=== PATIENT | male | born 2000 | race Caucasian/White ===

== ENCOUNTER 2024-03-05 09:14 | Outpatient (CLI) | payer MEDICAID, SELFPAY ==
--- NOTE | ~2024-03-05 | US_ITS ---
Limited Abdominal Sonogram: Real-time sonographic imaging of the right upper quadrant was performed. Clinical History: Abnormal liver enzymes Findings: The liver appears normal with no evidence of mass lesion or bile duct dilatation. Main por cliff vein demonstrates normal direction of flow. The gallbladder is well distended, and appears normal with no evidence of gallstone or wall thickening. The common bile duct measures 3 mm. The visualize d pancreas, aorta, and IVC are unremarkable. Impression: No significant abnormality seen. Reviewed, dictated and finalized at location . 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
== END 2024-03-05 09:15 | disposition home or self-care (01) ==
PROVIDERS: PCP Internal Medicine; Visit Provider Internal Medicine
DX: R94.5 Abnormal results of liver function studies (principal)
CPT/HCPCS: 76705

== ENCOUNTER 2024-04-06 00:48 | Day surgery (SDC) | payer MEDICAID, SELFPAY ==
[2024-03-26 12:55] VITALS: BMI 25.9
--- NOTE | 2024-04-05 15:33 | WPDANESEPPF ---
Anes - Initial Pre Proc Eval Procedure: Operation Date: 04/06/24 14:30 Proposed Procedures p Colonoscopy - Josue Pisano MD Date/Time: 04/05/24 15:33 Surgeon: Josue Pisano MD Pre Op Diagnosis: constipation Patient Data Age: 23 Gender: M Height: 1.73 m Weight: 77.5 kg Allergies Allergy/AdvReac Type Severity Reaction Status Date / Time No Known Allergies Allergy Verified 04/06/24 12:50 Home Medications ?Medication ?Instructions ?Recorded ?Confirmed ?Type No Home Medications 03/26/24 03/26/24 History Patient hx anesthesia problems: none Family hx anesthesia problems: none Results Review: All pre-operative results and documents have been reviewed as part of the pre-operative evaluation. [facility] Social History Social History Smoking status: Current every day smoker Tobacco type: e-cigarettes/vaping Substance use type: does not use Living arrangements: alone Anes - Eval Final PreProcedure Day of Procedure 04/05/24 15:33 Patient weight: obese Heart: regular rate and rhythm Lungs: clear to auscultation Airway: Mallampati scale class II Neurological: alert and oriented Last oral intake: >/= 8 hours ASA classification: II Emergent: no Anesthetic plan: proceed Anesthesia type and monitoring: general GIVS and standard monitoring Results Review: All pre-operative results and documents have been reviewed as part of the pre-operative evaluation. Informed Consent: The patient's anesthetic plan and its attendant risks and benefits were discussed with the patient/family/POA. Questions were solicited and answers provided to the satisfaction of the patient/family/POA.
[2024-04-06 12:51] VITALS: BP 134/73; PULSE 96; RESP 16; TEMP 36.6; O2SAT 100
[2024-04-06] MEDS: LACTATED RINGERS 1,000 ML 150 ML IV CONT (12:58)
--- NOTE | 2024-04-06 13:02 | PM.HPGS ---
History of Present Illness History of Present Illness Consent: Risks, benefits, and alternatives have been discussed and questions answered. Patient agrees to proceed with procedure. Chief complaint: constipation Narrative: Bart New is a 23 year old male here for first colonoscopy, h/o constipation Review of Systems Review of Systems: All systems reviewed & are unremarkable except as noted in HPI and below PMFSH Past Medical History Medical History (Updated 04/06/24 @ 13:03 by Josue Pisano MD) Constipation Social History Social History Smoking status: Current every day smoker Tobacco type: e-cigarettes/vaping Substance use type: does not use Living arrangements: alone Meds Home Medications and Allergies Home Medications ?Medication ?Instructions ?Recorded ?Confirmed ?Type No Home Medications 03/26/24 03/26/24 History Allergies Allergy/AdvReac Type Severity Reaction Status Date / Time No Known Allergies Allergy Verified 04/06/24 12:50 Vital Signs Vital Signs - 24 hr 04/06/24 12:51 Temperature 98 F Pulse Rate 96 Respiratory Rate 16 Blood Pressure 134/73 Pulse Oximetry 100 Oxygen Delivery Room Air Exam Const: General: comfortable and no acute distress HENMT: Face/Nose/Sinus: Normal nares present Eyes: General: appearance normal, both eyes and all related structures Neck: Neck: no JVD Resp: Auscultation: clear to auscultation bilaterally Cardio: Rate: regular rate Rhythm: regular rhythm GI: Inspection: non-distended GI Palp: Yes Soft to palpation Skin: General skin exam: normal color Neuro: General: gait normal Speech: normal speech Extrem: General: normal to inspection Psych: Mental Status: mental status grossly normal Assessment and Plan Assessment and plan (1) Constipation: Code(s): K59.00 - Constipation, unspecified Status: Acute Assessment and Plan: colonoscopy
[2024-04-06 13:26] VITALS: BP 99/68; PULSE 74; RESP 19; O2SAT 100
[2024-04-06 13:37] VITALS: BP 93/59; PULSE 68; RESP 17; O2SAT 100
[2024-04-06 13:47] VITALS: BP 121/77; PULSE 74; RESP 18; O2SAT 100
--- OUTSIDE RECORDS SUMMARY | 2024-04-08 15:16 | XMS_ITS | Data Portability ---
Author Organization [facility]ITALRafavictor manuel Fong Address [address] [place] [address] Care Team Providers Care Money Room Supervisor Name Role Phone AUBREY VARELA Primary Care Provider Assessment Encounter Date Assessment Date Assessment LastModified by Organization Details LastModified Time 12/01/2023 12/01/2023 obtain old recor ds get blood work he can use some prunes consider enema see me back in about 3 or 4 weeks. Insomnia right now I do not want him to do anything pharmacological even [id number] [email or web address] Not available 12/01/2023 20:19:17 12/25/2023 12/25/2023 we will try lactulose 15 mils b.i.d. p.r.n. see me back in 1 month high fiber diet hydrate [email or web address] Not available 12/27/2023 17:00:14 01/27/2024 01/27/2024 he can try the lactulose we will get a colonoscopy additional blood work to workup his elevated liver enzyme return to clinic 3 months [email or web address] Not available 01/31/2024 21:29:25 Plan of Treatment Reminders Order Date Submit Date Provider Last Modified By Organization Details Last Modified Time Details Appointments ANY 15 2024 02:00P Alfred Varela MD Not available Not available Not available Lab thyroid panel, serum 2023 024 [email or web address] [facility], [address] [facility], [place], [address], 12/17/2023 15:30:40 CMP, serum or plasma 2023 024 DYLAN [facility], [address], [place], [address], 12/01/2023 19:49:11 CBC w/ auto diff 2023 024 [email or web address] [facility], [address] [facility] [address], [place], [address], 12/17/2023 15:30:55 lipid panel, serum 2023 024 [email or web address] [facility], [address], [place], [address], 12/17/2023 15:31:04 urinalysi s, complete 2023 024 [email or web address] [facility], [address] [facility] [address], [place], [address], 12/17/2023 15:31:12 hepatitis panel (A+B+C), acute, serum 2023 024 DYLAN [facility], [address], [place], [address], 01/30/2024 20:09:20 DEBBIE (antinucl ear antibodie s) screen, serum 2023 024 DYLAN [facility], [address] [facility], [place], [address], 01/30/2024 20:09:21 TIBC (total iron-bind ing capacity) , serum 2023 024 DYLAN [facility], [address] [facility] [address], [place], [address], 01/30/2024 20:09:22 ferritin, serum or plasma 2023 024 DYLAN [facility], [address] [facility] [address], [place], [address], 01/30/2024 20:09:25 copper, serum or plasma 2023 024 DYLAN [facility], [address] [facility], [facility] [address], [place], [address], 01/30/2024 20:09:24 cerulopla smin, serum 2023 024 DYLAN [facility], [address] [facility], [facility] [address], [place], [address], 01/30/2024 20:09:23 actin smooth muscle IgG Ab, quant, serum 2023 024 DYLAN [facility], [address] [facility], [facility] [address], [place], [address], 01/30/2024 20:09:26 mitochond rial M2 igg Ab, serum 2023 024 D[facility], [address] [facility], [facility] [address], [place], [address], 01/30/2024 20:09:27 Referral None recorded. Procedures colonosco py procedure (PROC) [address] [facility], [address], [address], [place], [address], 02/26/2024 16:43:40 Surgeries None recorded. Imaging None recorded. Medication Orders lactulose 10 gram/15 mL oral solution 2023 024 [email or web address] [id number], [address], [place], [id number], 12/25/2023 17:57:18 Patient TargetsNo targets recorded. Patient Instructions Encounter Date Encounter Id Patient Instructions Last Modified By Organization Details Last Modified Time 12/25/2023 [id number] A healthy lifestyle: care instructions [email or web address] Not available 12/25/2023 17:57:18 01/27/2024 [id number] A healthy lifestyle: care instructions [email or web address] Not available 01/27/2024 15:20:11 Reason for Referral None Reported. Results Created Date Observation Date Name Description Value Unit Range Abnormal Flag Note LastModifiedBy Organization Detail LastModifiedTime 01/27/20 24 01/28/2024 INTER PRETA TION: interpretati on: Commen t Not infec javy with HCV unles s early or acute infec tion is suspe cted (whic h may be delay ed in an immun ocomp romis ed indiv idual ), or other evide nce exist s to indic ate HCV infec tion. Not Available [facility] ([facility]) [address] [facility], [place], [address], 01/30/2024 20:09:19 01/27/2001/27/2024 HAV, HBV, HCV interpretati on COMMEN T HBV Serol ogy Inter preta tion Chart ----- ----- ----- ----- ----- ----- ----- ----- ----- ----- ----- ----- ----- -- Inter preta tion HBsAg anti- HBs anti- HBc anti- HBc IgM ----- ----- ----- ----- ----- ----- ----- ----- ----- ----- ----- ----- ----- -- Carpenter - Ame te prese nt: + Ame te absen t: - Test not indic ated: TNI ----- ----- ----- ----- ----- ----- ----- ----- ----- ----- ----- ----- ----- -- Leodan ptibl e (neve r infec javy and no evide nce - - - TNI of vacci natio n) ----- ----- ----- ----- ----- ----- ----- ----- ----- ----- ----- ----- ----- -- Immun e due to natsteve al resol carmina infec tion - + + TNI ----- ----- ----- ----- ----- ----- ----- ----- ----- ----- ----- ----- ----- -- Immun e due to vacci natio n - + - TNI ----- ----- ----- ----- ----- ----- ----- ----- ----- ----- ----- ----- ----- -- Acute Infec tion + - + + ----- ----- ----- ----- ----- ----- ----- ----- ----- ----- ----- ----- ----- -- Chron ic infec tion + - + - ----- ----- ----- ----- ----- ----- ----- ----- ----- ----- ----- ----- ----- -- Inter preta tion uncle ar* - - + +/- ----- ----- ----- ----- ----- ----- ----- ----- ----- ----- ----- ----- ----- -- *Mult iple possi bilit ies: resol carmina infec tion (most commo n); false - posit brunilda anti- HBc (susc eptib le); low- level chron ic infec tion ; resol ving acute infec tion. Not Available [facility] ([facility]) [address] [facility], [place], [address], 01/30/2024 20:09:20 01/27/2001/28/2024 HAV, HBV, HCV hep A Ab, total POSITI VE negati ve abnormal Comme nt: The HAV total antib francisca assay detec ts both IgG and IgM but does not diffe renti ate betwe en them. A negat brunilda resul t sugge sts susce ptibi lity to infec tion. A posit brunilda resul t could be due to vacci natio n, previ ously resol carmina infec tion or activ e infec tion. Testi ng for HAV IgM shoul d be perfo rmed if activ e HAV infec tion is suspe cted. [facility] offer s profi les that will autom atica lly refle x posit brunilda HAV total antib francisca resul ts to IgM (e.g. , panel #[id number] HAV Antib francisca w/ Rfx). Not Available [facility] ([facility]) [address] [facility], [place], [address], 01/30/2024 20:09:20 01/27/2001/28/2024 HAV, HBV, HCV HBsAg screen NEGATI VE negati ve Not Available [facility] ([facility]) [address] [facility], [place], [address], 01/30/2024 20:09:20 01/27/2001/28/2024 HAV, HBV, HCV hep B surface Ab, qual NON REACTI VE Non React brunilda: Not immun e to HBV infec tion. Equiv ocal: Unabl e to deter mine if anti- HBs is prese nt at level s consi stent with immun ity. React brunilda: Anti- HBs diana ntrat ion detec javy at great er than 10 mIU/m L. Indiv idual is consi dered to be immun e to infec tion with HBV. Not Available [facility] ([facility]) [address] [facility], [place], [address], 01/30/2024 20:09:20 01/27/20 24 01/28/2024 HAV, HBV, HCV hep B core Ab, tot NEGATI VE negati ve Not Available [facility] ([facility]) [address] [facility], [place], [address], 01/30/2024 20:09:20 01/27/20 24 01/28/2024 HAV, HBV, HCV rfx to hbc IgM COMMEN T Refle x crite leydi was not met. Not Available [facility] ([facility]) [address] [place], [address], 01/30/2024 20:09:20 01/27/20 24 01/28/2024 HAV, HBV, HCV HCV Ab NON REACTI VE nonrea ctive Not Available [facility] ([facility]) [address] [place], [address], 01/30/2024 20:09:20 01/27/20 24 01/28/2024 DEBBIE W/REF ANGELIC DEBBIE direct NEGATI VE negati ve Not Available [facility] ([facility]) [address] [place], [address], 01/30/2024 20:09:21 01/27/20 24 01/28/2024 IRON AND TIBC iron bind.cap.(TI BC) 261 ug/dL 250-45 0 Not Available [facility] ([facility]) [address] [place], [address], 01/30/2024 20:09:22 01/27/20 24 01/28/2024 IRON AND TIBC UIBC 90 ug/dL 111-34 3 below low normal Not Available [facility] ([facility]) [address] [place], [address], 01/30/2024 20:09:22 01/27/20 24 01/28/2024 IRON AND TIBC iron 171 ug/dL 38-169 above high normal Not Available [facility] ([facility]) [address] [place], [address], 01/30/2024 20:09:22 01/27/2001/28/2024 IRON AND TIBC iron saturation 66 % 15-55 above high normal Not Available [facility] ([facility]) [address] [place], [address], 01/30/2024 20:09:22 01/27/20 24 01/28/2024 CERUL OPLAS MIN ceruloplasmi n 16.3 mg/dL 16.0-3 1.0 Not Available [facility] ([facility]) [address] [place], [address], 01/30/2024 20:09:23 01/27/20 24 01/30/2024 COPPE R, SERUM OR PLASM A copper, serum or plasma 76 ug/dL 63-121 Detec tion Limit = 5 Not Available [facility] ([facility]) [address] [place], [address], 01/30/2024 20:09:24 01/27/20 24 01/28/2024 CARMINA TIN ferritin 217 NG/mL 30-400 Not Available [facility] ([facility]) [address] [place], [address], 01/30/2024 20:09:25 01/27/2001/28/2024 ACTIN (SMOO TH MUSCL E) ANTIB FRANCISCA actin (smooth muscle) antibody 3 units 0-19 Negat brunilda 0 - 19 Weak posit brunilda 20 - 30 Moder ate to stron g posit brunilda >30 Actin Antib odies are found in 52-85 % of patie nts with autoi mmune hepat itis or chron ic activ e hepat itis and in 22% of patie nts with prima ry bilia ry cirrh osis. Not Available [facility] ([facility]) [address] [place], [address], 01/30/2024 20:09:26 01/27/20 24 01/28/2024 MITOC HONDR IAL (M2) ANTIB FRANCISCA mitochondria l (M2) antibody 31.3 units 0.0-20 .0 above high normal Negat brunilda 0.0 - 20.0 Equiv ocal 20.1 - 24.9 Posit brunilda >24.9 Mitoc hondr ial (M2) Antib odies are found in 90-96 % of patie nts with prima ry bilia ry cirrh osis. Not Available [facility] ([facility]) [address] [facility], [place], [address], 01/30/2024 20:09:27 01/27/20 24 01/28/2024 HEP A AB, IGM hep A Ab, IgM Negati ve negati ve A negat brunilda anti- HAV IgM resul t sugge sts no recen t or curre nt HAV infec tion. Not Available [facility] ([facility]) [address] [facility], [place], [address], 01/30/2024 20:09:28 03/05/20 24 03/05/2024 US, liver No observ ation record ed. [address] [facility] [place], [address], 03/19/2024 18:13:16 03/05/20 24 03/05/2024 US, liver No observ ation record ed. [address], [place], [address], 03/19/2024 18:13:30 Result Notes None recorded. Problems Name Problem SNOMED Code Status Onset Date Resolution Date Notes Provider Name and Address Organization Details Recorded Time Constipation 52245434 Active 2023 Aubrey Varela MD Attn: Amaury alexandre,[address] [facility], [place], [address], [facility] 20:19:17 Insomnia 610188818 Active 2023 Aubrey Varela MD Attn: Amaury alexandre,[address] [facility], [place], [address], [facility] 20:19:18 Liver enzymes level above reference range 096605442 Active 2023 Sulaiman Waite MA [facility], [facility] 15:42:14 Problem Notes None recorded. Procedures Surgical History None recorded. Imaging Results Imaging Date Name Status LastModified by Organiz ation Details LastModified Time 03/05/2024 US, liver completed [id number] [facility] [address], [place], [address], 03/19/2024 18:13:16 03/05/2024 US, liver completed [place] [id number] [facility] [address], [place], [address], 03/19/2024 18:13:30 Procedure Notes None recorded. Medical Equipment None Reported. Allergies No known drug allergies Medications Name Sig Start Date Stop Date Status Note LastModified by Organization Details LastModified Time lactulose 10 gram/15 mL oral solution TAKE 15 ML BY MOUTH TWICE DAILY NEEDED FOR CONSTIPATION active Not Available Not Available Not Available Vitals Date Recorded Body height Provider Name an d Address Organization Details Last Updated DateTime 12/01/2023 170.18 cm Marie Melton MA [facility] 12/01/2023 09:56:42 Date Recorded Body mass index (BMI) Body weight Provider Name and Address Organization Details Last Updated DateTime 12/01/2023 29.1 kg/m2 14493.18 g Marie Melton MA [facility] 09:56:47 Date Recorded Heart rate Provider Name an d Address Organization Details Last Updated DateTime 12/01/2023 83 /min Marie Melton [facility] 12/01/2023 09:58:37 Date Recorded Oxygen saturation Oxygen saturation in Arterial blood by Pulse oximetry Provider Name and Address Organization Details Last Updated DateTime 12/01/2023 99 % 99 % Marie Melton MA [facility] 11/30 09:58:39 Date Recorded Body height Provider Name an d Address Organization Details Last Updated DateTime 12/25/2023 170.18 cm Marie Melton [facility] 12/25/2023 15:45:40 Date Recorded Body mass index (BMI) Body weight Provider Name and Address Organization Details Last Updated DateTime 12/25/2023 28.7 kg/m2 24408.2 g Marie Melton MA [facility] 12/15 15:45:48 Date Recorded Heart rate Provider Name an d Address Organization Details Last Updated DateTime 12/25/2023 88 /min Marie Melton MA [facility] 12/25/2023 15:47:26 Date Recorded Oxygen saturation Oxygen saturation in Arterial blood by Pulse oximetry Provider Name and Address Organization Details Last Updated DateTime 12/25/2023 99 % 99 % Marie Melton MA [facility] 12/24 15:47:30 Date Recorded Body height Provider Name an d Address Organization Details Last Updated DateTime 01/27/2024 170.18 cm Marie Melton MA [facility] 01/27/2024 15:05:09 Date Recorded Body mass index (BMI) Body weight Provider Name and Address Organization Details Last Updated DateTime 01/27/2024 30.1 kg/m2 73826.17 g Marie Melton MA [facility] 02/2024 15:12:56 Date Recorded Heart rate Provider Name an d Address Organization Details Last Updated DateTime 01/27/2024 99 /min Marie Melton MA [facility] 01/27/2024 15:13:15 Date Recorded Oxygen saturation Oxygen saturation in Arterial blood by Pulse oximetry Provider Name and Address Organization Details Last Updated DateTime 01/27/2024 99 % 99 % Marie Melton MA [facility] 01/26 15:13:20 Date Recorded Systolic blood pressure Diastolic blood pressure Provider Name and Address Organization Details Last Updated DateTime 12/01/2023 112 mm[Hg] 80 mm[Hg] Marie Melton MA [facility] 11/15 09:58:33 Date Recorded Systolic blood pressure Diastolic blood pressure Provider Name and Address Organization Details Last Updated DateTime 12/25/2023 110 mm[Hg] 80 mm[Hg] Marie Melton MA [facility] 12/15 15:47:24 Date Recorded Systolic blood pressure Diastolic blood pressure Provider Name and Address Organization Details Last Updated DateTime 01/27/2024 120 mm[Hg] 78 mm[Hg] Marie Melton [place] [facility] 01/15 15:13:12 Social History Question Answer Notes LastModified by Organizat ion Details LastModified Time Tobacco Smoking Status Current Every Day Smoker Vape Marie Melton MA null, [place] - [facility] 12/01/2023 10:00:52 Do You Have An Advance Directive? No Information n ot available 12/25/2023 What Is Your Level Of Alcohol Consumption? None Information not available 12/25/2023 Are You Blind Or Do You Have Difficulty Seeing? No Information n ot available 12/01/2023 What Is Your Level Of Caffeine Consumption? Moderate Information not available 12/01/2023 In The 14 Days Before Symptom Onset, Have You Had Close Contact With A Laboratory-confirm ed COVID-19 While That Case Was Ill? No Information n ot available 12/01/2023 In The 14 Days Before Symptom Onset, Have You Had Close Contact With A Person Who Is Under Investigation For COVID-19 While That Person Was Ill? No Information not available 12/01/2023 Have You Been To An Area Known To Be High Risk For COVID-19? No Information not available 12/01/2023 Are You Currently Employed? Yes Information not available 12/01/2023 Are You Deaf Or Do You Have Serious Difficulty Hearing? No Information not available 12/01/2023 What Type Of Diet Are You Following? REGULAR Information n ot available 12/01/2023 Are There Any Guns Present In Your Home? No Information not available 12/01/2023 What Was The Date Of Your Most Recent Tobacco Screening? 01/27/2024 Information not available 01/27/2024 What Is Your Current Pack Years? 10packyears Information not available 12/01/2023 What Is Your Relationship Status? Single Information not available 12/25/2023 Do You Use Your Seat Belt Or Car Seat Routinely? Yes Information not available 12/01/2023 Do You Have Smoke And Carbon Monoxide Detectors In Your Home? Yes Information not available 12/01/2023 How Much Tobacco Do You Smoke? 1 PPW Information not available 12/25/2023 Do You Feel Stressed (tense, Restless, Nervous, Or Anxious, Or Unable To Sleep At Night)? [id number] Information not available 12/01/2023 Do You Use Any Illicit Or Recreational Drugs? No Information not available 12/01/2023 Do You Use Sunscreen Routinely? Yes Information not available 12/01/2023 Has Tobacco Cessation Counseling Been Provided? Yes Information not available 12/01/2023 On What Date Was Tobacco Cessation Counseling Provided? 01/27/2024 Information not available 01/27/2024 Do You Or Have You Ever Used Any Other Forms Of Tobacco Or Nicotine? No Information not available 12/01/2023 Sex: Male Functional Status Question Answer Note LastModified by Organization D etails LastModified Time Are you able to care for yourself? Yes Information n ot available 12/01/2023 Mental Status None recorded. Family History Relationship Description Onset Age of this Age Resolved Age Notes LastModified by Organization Details LastModified Time Paternal Grandfather Malignant neoplasm of liver gwardma Not available 2023 09:59:57 Medical History Condition Response Coronary Artery Disease N Atrial Fibrillation N High Blood Pressure N Depression N COPD N Blood Clots N Anxiety Disorder N Muscle, Joint, or Bone Problems N Acid Reflux (GERD) N Cancer N Stroke N Kidney or Bladder Problems N Skin Problems N Asthma N Allergies N Hepatitis N High Cholesterol N Liver Disease N Thyroid Problems N GI Problems Y Anemia N Heart Attack (MT) N Diabetes N Seizures/Epilepsy N Heart Failure N Osteoporosis N Past Encounters Encounter ID Performer Location Encounter Start Date Encounter Closed Date Diagnosis/Indication Diagnosis SNOMED-CT Code Diagnosis ICD10 Code Diagnosis Note [id number] Aubrey Varela MD [facility] [place] [address] [place] [address] 12/01/2023 09:41:37 12/01/2023 10:58:45 Constipation 30463107 K59.00 Insomnia 731405752 G47.0 0 Screening for cardiovascular system disease 511186917 Z13.6 [id number] Aubrey Varela MD [facility] [place] [address] [place] [address] 12/25/2023 15:22:56 12/25/2023 16:49:06 Overweight 596729530 E66.3 Constipation 29242718 K5 9.00 [id number] Aubrey Varela MD [facility] ([facility] [address] [place] [address] 01/27/2024 14:59:48 01/27/2024 15:42:53 Body mass index 30+ - obesity 336535257 Z68.30 Obesity 110956013 E66.9 Constipation 46048634 K5 9.00 Liver enzy mes level above reference range 905578515 R74.8 Health Concerns Section Related Observation LastModified by Organization Detai ls LastModified Time None Recorded Concern Status LastModified by Organization Details LastModified Time None Recorded Advance Directives Directive N: Payers Encounter Date Sequence Insurance Name Policy Number Policy Santacruz Covered Member ID Santacruz Member ID Guarantor Name 12/01/2023 1 [place] [employer] Bart New [id number] Bart New 12/25/2023 1 [place] [employer] [facility] [facility] [employer] Bart New [id number] Bart New 01/27/2024 1 [place] [facility] [id number] Bart New Notes Date Note Type Note Provider Name and Address Organization Details Recorded Time 12/01/2023 text/html 23-year-old has been constipated for about 3 weeks he has had a little bit of blood and he has had a little bit of mucus has been no clear-cut abdominal pain he wound up going to some clinic where he is and he had x-rays done and said that he was full of stool. He has even tried to take some magnesium citrate that did result in some stool but it was watery. He does not have any recent travel no sick contacts no history of any previous abdominal problems except for lactose intolerance. 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 He has lost 3 lb. He thinks now he was using monster energy drinks several a day for many years and then when he stopped those that is when he noticed that he became constipated so he rechallenge himself and his stools got back to what he considered normal Aubrey Varela MD Attn: [address] , [place], [address], [facility] 12/27/2023 17:00:39 01/27/2024 text/html he did not do th e lactulose that he went on a camping trip or something like that but any rate he did not do it his liver enzymes are elevated needs some blood work with that he is still having the constipation Aubrey Varela MD Attn: Accounting,[address], [place], [address], [facility] 01/31/2024 21:29:53
== END 2024-04-06 14:02 | disposition home or self-care (01) ==
PROVIDERS: PCP Internal Medicine; Visit Provider Internal Medicine Gastroenterology
PROC: 0DJD8ZZ Inspection of Lower Intestinal Tract, Via Natural or Artificial Opening Endoscopic (ICD-10-PCS; CPT 45378; principal; 2024-04-06 14:30)
DX: K59.00 Constipation, unspecified (principal); F17.290 Nicotine dependence, other tobacco product, uncomplicated
CPT/HCPCS: 45378; J2003; J2704; J7120